=== PATIENT | male | born 1950 | race Caucasian/White ===

== ENCOUNTER 2021-05-29 09:22 | Day surgery (SDC) | payer MEDICARE ==
[2021-05-29] VITALS (9 sets, daily range): BP systolic 112–131; BP diastolic 69–76
[~2021-05-29] VITALS: Ht 188 cm; Wt 108.7 kg
[~2021-05-29 09:22] MED LIST: ASPI-1264 PO; ATOR40TA PO; CLOP75TA34 PO; LOP25T PO; NAPR220C15 PO; NITR0.4T SL; PANT-47 PO
[2021-05-29] MEDS ORDERED: normal saline 1,000 ML IV SCH (09:55)
[2021-05-29] MEDS ORDERED: LORazepam 0.5 MG tablet PO PRN (09:55)
[2021-05-29] MEDS ORDERED: diphenhydrAMINE 25mg capsule PO PRN (09:55)
[2021-05-29] MEDS ORDERED: TRAM50TA2 PO (10:33)
[2021-05-29] MEDS ORDERED: NITR0.4T48 (10:33)
[2021-05-29] MEDS ORDERED: METO50TA16 PO (10:33)
[2021-05-29] MEDS ORDERED: ATOR-2 PO (10:33)
[2021-05-29] MEDS ORDERED: ISOS60TA71 PO (10:33)
[2021-05-29] MEDS ORDERED: METF-438 PO (10:33)
[2021-05-29] MEDS ORDERED: INDO-12 PO (10:35)
[2021-05-29] MEDS ORDERED: SULF1TAB45 PO (10:35)
[2021-05-29] MEDS ORDERED: LIDOcaine/PRILOcaine 5gm cream TP ONE (10:40)
[2021-05-29] MEDS ORDERED: OMEP40CA21 PO (10:40)
[2021-05-29] MEDS ORDERED: CLOP75TA33 PO (10:40)
[2021-05-29] MEDS ORDERED: LIDOcaine 1% (10mg/ml)w/preservative injection 20ml MDV ONE (10:41)
[2021-05-29] MEDS ORDERED: midazolam 1 mg/ML 2ml injection ONE (10:41)
[2021-05-29] MEDS ORDERED: verapamil 2.5 mg/ml inj IV ONE (10:41)
[2021-05-29] MEDS ORDERED: nitroGLYCERIN-Tridil 50MG/D5W 250 ML IV ONE (10:41)
[2021-05-29] MEDS ORDERED: iohexol 350 MG/ML 50ML vial IV ONE (10:42)
[2021-05-29] MEDS ORDERED: iohexol 350MG/ML 100ml bottle IV ONE (10:42)
[2021-05-29] MEDS ORDERED: heparin 1,000unit/ml 10ml vial 10 ML ONE (10:42)
[2021-05-29] MEDS ORDERED: fentaNYL/PF 50MCG/1 ML 2ML syringe ONE (10:45)
[2021-05-29 15:05] LABS: ISTAT Hct MIX 42 %PCV (42-52); ISTAT O2 SATURATION MIX VENOUS 68 % (60-80); ISTAT O2 SATURATION MIX VENOUS 93 % (60-80); ISTAT SOURCE BLNK
== END 2021-05-29 17:05 | disposition home or self-care (01) ==
LOC: SSTAY O 09:22
PROVIDERS: ATTEND Internal Medicine Cardiovascular Disease
DX: R94.39 Abnormal result of other cardiovascular function study (principal); R07.89 Other chest pain; I25.119 Atherosclerotic heart disease of native coronary artery with unspecified angina pectoris; I10 Essential (primary) hypertension; E78.5 Hyperlipidemia, unspecified; G47.30 Sleep apnea, unspecified; J44.9 Chronic obstructive pulmonary disease, unspecified; Z79.84 Long term (current) use of oral hypoglycemic drugs; Z79.899 Other long term (current) drug therapy; Z79.01 Long term (current) use of anticoagulants; Z79.82 Long term (current) use of aspirin; Z95.5 Presence of coronary angioplasty implant and graft; Z87.891 Personal history of nicotine dependence; Z82.49 Family history of ischemic heart disease and other diseases of the circulatory system
CPT/HCPCS: 76937; 82803; 85014; 93005; 93460; 99152; 99153; C1751; C1769; C1894; J1644; J2001; J2250; J3010; J7030; Q0163; Q9967; A4620; A6258; J3490